=== PATIENT | female | born 1950 | race American Indian/Alaskan Native ===

== ENCOUNTER 2016-05-31 05:02 | Inpatient (IN) | payer MEDICARE, OTHER ==
[2016-05-31 06:31] LABS: Basophils % (Auto) 0.7 % (0.0-1.8); Eosinophils % (Auto) 2.7 % (0.0-4.3); Hematocrit 33.7 % (30.3-42.9); Hemoglobin 10.8 gm/dl (10.1-14.3); Mean Corpuscular HGB Conc 32 % (30-34); Mean Corpuscular Hemoglobin 29 pg (28-32); Mean Corpuscular Volume 91 fl (79-97); Platelet Count 390 K/mm3 (140-440); White Blood Count 12.6 K/mm3 (4.5-11.0)
[2016-05-31 06:33] LABS: Bacteria,Urine 4+ /HPF (Negative); Bilirubin,Urine NEG (Negative); Blood,Urine MOD (Negative); Ketones,Urine NEG (Negative); Leukocyte Esterase,Urine LG (Negative); Mucus,Urine FEW /HPF; Nitrite,Urine NEG (Negative); Urobilinogen,Urine < 2.0 mg/dL (<2.0)
[2016-05-31 06:34] LABS: WBC,Urine > 182.0 /HPF (0.0-6.0)
[2016-05-31] MEDS ORDERED: ROCEPHIN/NS 1 GM/50 ML 50 ML IV ONE (06:38)
[2016-05-31] MEDS ORDERED: NACL 0.9% 1000 ML 1,000 ML IV ONE (06:38)
[2016-05-31 06:51] LABS: B-Hydroxybutyrate 1.2 mg/dL (0.2-2.8); BUN/Creatinine Ratio 13.75; Calcium 8.9 mg/dL (8.4-10.2)
[2016-05-31 06:52] LABS: Chloride 89.8 mmol/L (98-107); Potassium 4.6 mmol/L (3.6-5.0)
[2016-05-31] MEDS ORDERED: BABY ASPIRIN PO ONE (07:06)
--- NOTE | 2016-05-31 07:06 | Emergency Department Report ---
HPI - General Chief Complaint: Hyperglycemia Time Seen by Provider: 05/31/16 06:18 - HPI HPI: The patient is a 66-year-old female with a history of diabetes, who presents for evaluation of syncope. The patient was with her . They state that at 3 AM this morning, 3 hours prior to my evaluation, the patient passed out while using the bathroom. The patient states that she experienced severe lightheadedness prior to passing out. She currently complains of constant severe tiredness/fatigue since passing out 3 hours ago. She admits to thirst and dryness of the mouth, and increased urinary frequency. The patient denies fever, head injury, headache, chest pain, dyspnea, hemoptysis, neck stiffness, vision or hearing changes, smell or taste changes, paresthesias, facial drooping , slurred speech, seizure-like activity, urine or bowel incontinence or retention, or other focal neurological deficit. ED Past Medical Hx - Past Medical History Previous Medical History?: Yes Hx Hypertension: Yes Hx Diabetes: Yes (IDDM) Additional medical history: HLD - Surgical History Past Surgical History?: No - Social History Smoking Status: Never Smoker Substance Use Type: None - Medications Home Medications: Home Medications Medication Instructions Recorded Confirmed Last Taken Type Atorvastatin Calcium [Lipitor] 20 mg PO QHS 05/31/16 05/31/16 Unknown History Insulin Aspart Prot/Aspart 9 units SQ QAM 05/31/16 05/31/16 Unknown History [Novolog Mix 70/30] Insulin Aspart Prot/Aspart 9 units SQ QPM 05/31/16 05/31/16 Unknown History [Novolog Mix 70/30] Insulin Glargine [Lantus] 29 units SQ QHS 05/31/16 05/31/16 Unknown History ED Review of Systems ROS: Stated complaint: HIGH BLOOD SUGAR Other details as noted in HPI Constitutional: denies: fever; reports syncope ENT: denies: throat or neck pain Respiratory: denies: cough, shortness of breath Cardiovascular: denies: chest pain Endocrine: denies unexplained weight loss or gain Gastrointestinal: denies: abdominal pain, nausea Genitourinary: reports urinary frequency denies: dysuria Musculoskeletal: denies: leg swelling Skin: denies: rash Neurological: denies: headache Hematological/Lymphatic: denies: easy bleeding or easy bruising Psych: denies sadness or hopelessness Physical Exam - Physical Exam Vital Signs: Vital Signs 05/31/16 05:48 Temperature 97.8 F Pulse Rate 89 Respiratory 20 Rate Blood Pressure 133/88 O2 Sat by Pulse 98 Oximetry Physical Exam: General: well-nourished, well-developed, no acute distress Head: Normocephalic, atraumatic Eyes: normal sclera ENT: Mucous membranes are pale and dry Neck: trachea midline, neck supple, No neck stiffness, no cervical adenopathy Respiratory: Breath sounds equal bilaterally, no wheezing, rales, or rhonchi Cardio: S1 and S2 present, no murmurs, rubs, gallops, capillary refill is delayed Abdomen: Normoactive bowel sounds, soft abdomen, suprapubic tenderness to palpation present, no rigidity, no guarding or rebound tenderness Chest WALL/Back: No tenderness to palpation of the chest wall, no CVA tenderness with percussion Musc: No pitting edema Skin: No rash Neuro: no facial drooping, normal speech Psych: Normal affect ED Course Vital Signs 05/31/16 05:48 Temperature 97.8 F Pulse Rate 89 Respiratory 20 Rate Blood Pressure 133/88 O2 Sat by Pulse 98 Oximetry ED Medical Decision Making - Lab Data Result diagrams: 05/31/16 05:58 05/31/16 05:58 - Medical Decision Making The patient was seen and examined by myself. The patient is placed on a lunchroom monitor and continuous pulse ox. On initial evaluation, the patient was found to be in no distress. Evaluation orders were placed. The patient is given 1 L normal saline fluid bolus for treatment of dehydration. Lab results revealed leukocytosis 12.6, elevated urine WBC 182, positive leukocyte esterase, consistent with UTI, elevated BUN/creatinine, 55 and 4 respectively, consistent with acute kidney injury, low pH 7.27, low bicarbonate of 20, with elevated anion gap of 23, consistent with metabolic acidosis, and elevated glucose of 702, although with normal ketone level, not consistent with DKA. The patient is given IV Rocephin for treatment of UTI, and 10 units of insulin for treatment of hyperglycemia. The on-call hospitalist service was contacted. They agreed to admit the patient for further treatment and close monitoring. The ED admit order was placed. The patient was admitted in guarded condition. Critical care attestation.: If time is entered above; I have spent that time in minutes in the direct care of this critically ill patient, excluding procedure time. ED Disposition Clinical Impression: Acute UTI (urinary tract infection), Acute hyperglycemia, CARLOS ALBERTO (acute kidney injury), Syncope and collapse, Metabolic acidosis, Dehydration Disposition: OP ADMITTED IP TO THIS HOSP Is pt being admited?: Yes Does the pt Need Aspirin: Yes Condition: Serious Instructions: Syncope (ED) Referrals: PRIMARY CARE, [Primary Care Provider] - 3-5 Days Time of Disposition: 06:52
--- NOTE | 2016-05-31 07:50 | History and Physical Report ---
History of Present Illness Chief complaint: I passed out History of present illness: 66 YO Female with DM, HTN, HLD, Obesity, Metabolic Syndrome presents to ED for evaluation. Pt states that she awoke at 3am, and went to the restroom. Pt states that she became lightheaded and dizzy while sitting on the toilet, and subsequently passed out while using the bathroom. Pt acknowledges polyuria, polydipsia, and polyphagia, and currently complains of constant severe fatigue since passing out 3 hours ago. The patient denies fever, head injury, headache, chest pain, dyspnea, hemoptysis, neck stiffness, vision or hearing changes, smell or taste changes, paresthesias, facial drooping, slurred speech, seizure- like activity, urine or bowel incontinence or retention, unintentional weight loss, night sweats, prolonged travel/immobility, individual/family history of DVT/PE, or recent ill contacts. Past History Past Medical History: diabetes, hypertension, hyperlipidemia Social history: , lives with family. denies: smoking, alcohol abuse, prescription drug abuse Family history: diabetes, hypertension Medications and Allergies Allergies Allergy/AdvReac Type Severity Reaction Status Date / Time No Known Allergies Allergy Unverified 05/31/16 05:48 Home Medications Medication Instructions Recorded Confirmed Last Taken Type Atorvastatin Calcium [Lipitor] 20 mg PO QHS 05/31/16 05/31/16 Unknown History Insulin Aspart Prot/Aspart 9 units SQ QAM 05/31/16 05/31/16 Unknown History [Novolog Mix 70/30] Insulin Aspart Prot/Aspart 9 units SQ QPM 05/31/16 05/31/16 Unknown History [Novolog Mix 70/30] Insulin Glargine [Lantus] 29 units SQ QHS 05/31/16 05/31/16 Unknown History Review of Systems All systems: negative Constitutional: fatigue, weakness Endocrine: polyphagia, polydipsia, polyuria Exam - Constitutional Vitals: Temp Pulse Resp BP Pulse Ox 97.8 F 89 20 133/88 98 05/31/16 05:48 05/31/16 05:48 05/31/16 05:48 05/31/16 05:48 05/31/16 05:48 General appearance: Present: no acute distress - EENT Eyes: Present: PERRL ENT: hearing intact, clear oral mucosa - Neck Neck: Present: supple, normal ROM - Respiratory Respiratory effort: normal Respiratory: bilateral: CTA - Cardiovascular Heart Sounds: Present: S1 & S2. Absent: rub, click - Extremities Extremities: pulses symmetrical, No edema Extremity abnormal: edema Peripheral Pulses: within normal limits - Abdominal General gastrointestinal: Present: soft, non-tender, non-distended, normal bowel sounds Female genitourinary: Present: normal - Integumentary Integumentary: Present: clear, warm, dry - Musculoskeletal Musculoskeletal: generalized weakness - Psychiatric Psychiatric: appropriate mood/affect, intact judgment & insight - Neurologic Neurologic: CNII-XII intact, moves all extremities Results - Labs CBC & Chem 7: 05/31/16 05:58 05/31/16 08:19 Labs: Abnormal lab results 05/31/16 05/31/16 05/31/16 Range/Units 05:58 05:58 05:58 WBC 12.6 H (4.5-11.0) K/mm3 [place] % (Auto) 8.8 H (0.0-7.3) % [place] # 1.1 H (0.0-0.8) K/mm3 VBG pH 7.273 L (7.320-7.420) Sodium 128 L (137-145) mmol/L Chloride 89.8 L (98-107) mmol/L Carbon Dioxide 20 L (22-30) mmol/L BUN 55 H (7-17) mg/dL Creatinine 4.0 H (0.7-1.2) mg/dL POC Glucose (70-105) Urine WBC (Auto) (0.0-6.0) /HPF U Epithel Cells (Auto) (0-13.0) /HPF 05/31/16 05/31/16 Range/Units 06:20 06:47 WBC (4.5-11.0) K/mm3 [place] % (Auto) (0.0-7.3) % [place] # (0.0-0.8) K/mm3 VBG pH (7.320-7.420) Sodium (137-145) mmol/L Chloride (98-107) mmol/L Carbon Dioxide (22-30) mmol/L BUN (7-17) mg/dL Creatinine (0.7-1.2) mg/dL POC Glucose 452 H (70-105) Urine WBC (Auto) > 182.0 H (0.0-6.0) /HPF U Epithel Cells (Auto) 77.0 H (0-13.0) /HPF Assessment and Plan - Patient Problems (1) Sepsis secondary to UTI Current Visit: Yes Status: Acute Plan to address problem: Sepsis protocol: IV abx, IVF, blood cultures, serial lactate levels (2) Acute hyperglycemia Current Visit: Yes Status: Acute Plan to address problem: ADA diet, Accu check, SSI, supportive care. (3) Metabolic acidosis Current Visit: Yes Status: Acute Plan to address problem: treat sepsis, IVF, supportive care. (4) Syncope and collapse Current Visit: Yes Status: Acute Plan to address problem: suspect vasovagal syncope, CT head, Ddimer (5) CARLOS ALBERTO (acute kidney injury) Current Visit: Yes Status: Acute Plan to address problem: IVF, supportive care, urine electrolytes, Renal ultrasound (6) DVT prophylaxis Current Visit: Yes Status: Acute
[2016-05-31] MEDS ORDERED: TYLENOL PO PRN (07:51)
[2016-05-31] MEDS ORDERED: D50W (25GM) IV PRN (09:00)
--- NOTE | 2016-05-31 09:09 | Admit Criteria Form ---
Admission Criteria Documentation: DIABETES Clinical Indications for Admission to Inpatient Care (Place 'X' for any and all applicable criteria): Admission is indicated by presence of ALL (if I & II) or ANY ONE (if III or IV) of the following (1)(2)(3)(4): [X ]I. Diabetes is uncontrolled as indicated by ANY ONE of the following: [ ]a) Diabetic ketoacidosis as indicated by ALL of the following (8): [ ]i) Hyperglycemia (eg, plasma glucose greater than 200 mg/ dL (11.1 mmol/L)) [ ]ii) Acidosis (eg, arterial pH less than 7.30, serum bicarbonate level less than 15 mEq/L (mmol/L)) [ ]iii) Moderate ketonuria or ketonemia [ ]b) Hyperglycemic hyperosmolar state as indicated by ALL of the following(9)(10): [ ]i) Neurologic dysfunction (eg, stupor, coma, hemiparesis , seizure)(13) [ ]ii) Plasma glucose greater than 600 mg/dL (33.3 mmol/L) [ ]iii) Serum osmolality greater than 320 mOsm/kg (mmol/kg) [X ]c) Severe signs or symptoms secondary to hyperglycemia indicated by ANY ONE of the following: [ ]i) Altered mental status(10) [ ]ii) Significant hypovolemia or dehydration [ ]iii) Intractable nausea or vomiting [ ]iv) Unexplained fever or severe infection [ X]v) Severe electrolyte abnormality (eg, hypokalemia, hyperkalemia, hypernatremia) [X ]II. Management at other levels of care (Also use Diabetes: Observation Care as appropriate) is not feasible because of ANY ONE of the following: [X ]a) Condition was not adequately corrected with treatment at other levels of care. [ ]b) Treatment at other levels of care is not appropriate because of condition severity (eg, hyperosmolar coma). [ ]III. Contraindications and/or Inappropriate clinical situations for Observational Care in patients with Diabetes, when ANY ONE of the following is required: [ ]a) Patient require specific diagnostic workup or therapeutic intervention 22 [ ]b) Patient with abnormal vital signs or altered mental status 23 [xX ]IV. General contraindications and/or Inappropriate clinical situations for Observational Care in patients with Diabetes, when ANY ONE of the following is required: [ X]a) Prediction of prolongation of LOS based on ANY ONE of the following may be considered as a contraindication for observational care 2, 3, 4, 5, 6, 7, 8, 9, 10, 11 X[ ]i) Age > 65 yrs. [ ]ii) Patient arriving by ambulance [ ]iii) Patient with high acuity [ ]iv) Patient requiring vital sign monitoring [ ]v) Patient on IV medication [ ]b) Systolic blood pressures 180mmHg 3,12 [ ]c) Patient with altered mental status including delirium and other alteration of consciousness, (3) [ ]d) Patient whose discharge disposition will be to a custodial home or rehabilitation home should not be managed in Emergency Department Observation Unit. CMS rule requires 3 days hospital stay before such placement.3,13 [ ]e) Patient with failure to thrive due to broad array of etiologies 3,16,17 [ ]f) Inability to ambulate 3,14 Extended stay beyond goal length of stay may be needed for(3)(20): [ ]a) Treatment of precipitating causes [ ]b) Development of hypoglycemia [ ]c) Complications of treatment [ ]d) Complications of decompensated diabetes (eg, acute gastric dilatation, persistent metabolic or neurologic derangement) [ ]e) Active Comorbidities [ ]f) Older patients( 65 years or older) The original [facility] [employer] content created by [employer] has been revised. The portions of the content which have been revised are identified through the use of italic text or in bold,and [facility] has neither reviewed nor approved the modified material. All other unmodified content is copyright [facility]. Please see references footnoted in the original [facility] [employer] edition 2016 Admission Criteria Met: Yes
[2016-05-31] MEDS ORDERED: [UNRECOGNIZED DRUG - OTHER] SQ SCH ×2 (10:00→18:00)
[2016-05-31] MEDS ORDERED: INSULIN ASPART PROTAMINE SQ SCH ×2 (10:00→18:00)
--- NOTE | 2016-05-31 10:12 | Ultrasound Report ---
ULTRASOUND RENAL INDICATION: Renal failure. COMPARISON: None similar at this institution. FINDINGS: Renal sonography demonstrates mild increased renal cortical echogenicity, more so apparent on the right. Grossly preserved contours. No hydronephrosis. Right kidney measures 10.9 x 4.8 x 5.3 cm with cortical thickness of 1.6 cm. Left kidney estimated at 11.4 x 5.9 x 6 cm with cortical thickness of 1.3 cm. Urinary bladder appears within normal limits. CONCLUSION: Underlying medical renal disease without acute sonographic abnormality, as described. Please correlate. Thank you for the opportunity to participate in this patient's care.
[2016-05-31] MEDS: NOVOLOG SUB-Q SCH ×2 (11:51→18:07)
[2016-05-31] MEDS: LEVAQUIN 750MG/150ML 150 ML IV SCH (11:51)
[2016-05-31] MEDS: NACL 0.9% 1000 ML 1,000 ML IV SCH (16:00)
[2016-05-31] MEDS ORDERED: PNEUMOVAX 23 IM ONE (21:00)
[2016-05-31] MEDS: LEVEMIR SUB-Q SCH (21:35)
[2016-05-31] MEDS ORDERED: INSULIN GLARGINE SQ SCH (22:00)
[2016-06-01] MEDS: NOVOLOG SUB-Q SCH ×4 (00:20→17:49)
[2016-06-01 07:58] LABS: Albumin 3.1 g/dL (3.9-5); Albumin/Globulin Ratio 0.7 %; BUN/Creatinine Ratio 13.54; Bilirubin,Total 0.3 mg/dL (0.1-1.2); Calcium 8.9 mg/dL (8.4-10.2); Chloride 104.3 mmol/L (98-107); Potassium 4.2 mmol/L (3.6-5.0); Total Protein 7.5 g/dL (6.3-8.2)
--- NOTE | 2016-06-01 10:49 | Cat Scan Report ---
CT HEAD WITHOUT CONTRAST INDICATION: Syncope. COMPARISON: None similar. FINDINGS: Noncontrast head CT demonstrates normal ventricles and sulci without acute or recent infarct, hemorrhage, mass effect or midline shift. Mild periventricular and few white matter hypodensities. No abnormal extra-axial fluid collections. Posterior fossa structures and basilar cisterns appear within normal limits. Atherosclerotic internal carotid artery calcifications. Clear imaged paranasal sinuses and mastoid air cells. Hyperostosis frontalis interna. Normal overlying scalp soft tissues. Few radiopaque dental material and missing teeth incidentally noted. CONCLUSION: No acute intracranial CT abnormality, as described. Thank you for the opportunity to participate in this patient's care.
[2016-06-01] MEDS: LEVAQUIN 750MG/150ML 150 ML IV SCH (11:20)
[2016-06-01] MEDS: NACL 0.9% 1000 ML 1,000 ML IV SCH (11:21)
--- NOTE | 2016-06-01 16:34 | Progress Note ---
Assessment and Plan Assessment and plan: Sepsis secondary to UTI * Continue Sepsis protocol: IV abx, IVF * Negative blood cultures, serial lactate levels trending down Diabetes mellitus type 2 on insulin * ADA diet, Accu check, SSI, supportive care. Metabolic acidosis * Likely due to underlying uncontrolled diabetes and declining renal function * treat sepsis, continue insulin, IVF, supportive care. Syncope and collapse * suspect vasovagal syncope, * CT head pending CARLOS ALBERTO (acute kidney injury) CKD * IVF, supportive care, urine electrolytes, Renal ultrasound * Creatinine 3.1 today * Repeat BMP tomorrow, if renal function declines we'll consult nephrology Hyperlipidemia * Continue statin History Interval history: Patient seen and examined. Medical records and medication list reviewed. No acute event overnight noted by the RN. Patient denies any chest pain or difficulty breathing. Patient is tolerating diet. Denies any lightheadedness, patient does have history of chronic kidney disease but does not follow up with nephrology's as an outpatient/ Discussed plan of care at bedside with patient. Hospitalist Physical - Physical exam Narrative exam: GENERAL: Obese -Hungarian female lying on bed appeared to be in no discomfort. HEENT: Normocephalic. Atraumatic. No conjunctival congestion or icterus. Patient has moist mucous membranes. NECK: Supple. Trachea midline. CHEST/LUNGS: Clear to auscultated bilaterally, breathing nonlabored. No wheezes crackles or rhonchi. HEART/CARDIOVASCULAR: Regular in rate and rhythm. S1 and S2 positive. ABDOMEN: Abdomen is soft, nontender. Patient has normal bowel sounds. SKIN: There is no rash. Warm and dry. NEURO: No focal motor deficit. Follows command. MUSCULOSKELETAL: No joint effusion or tenderness. EXTRIMITY: No edema, no cyanosis or clubbing. PSYCH: Cooperative. - Constitutional Vitals: Temp Pulse Resp BP Pulse Ox 98.6 F 102 H 16 152/88 97 06/01/16 07:25 06/01/16 07:25 06/01/16 07:25 06/01/16 07:25 06/01/16 08:19 General appearance: Present: no acute distress Results - Labs CBC & Chem 7: 05/31/16 05:58 06/02/16 05:19 Labs: Laboratory Last Values WBC 12.6 K/mm3 (4.5-11.0) H 05/31/16 05:58 RBC 3.70 M/mm3 (3.65-5.03) 05/31/16 05:58 Hgb 10.8 gm/dl (10.1-14.3) 05/31/16 05:58 Hct 33.7 % (30.3-42.9) 05/31/16 05:58 MCV 91 fl (79-97) 05/31/16 05:58 MCH 29 pg (28-32) 05/31/16 05:58 MCHC 32 % (30-34) 05/31/16 05:58 RDW 14.0 % (13.2-15.2) 05/31/16 05:58 Plt Count 390 K/mm3 (140-440) 05/31/16 05:58 Lymph % (Auto) 32.9 % (13.4-35.0) 05/31/16 05:58 [place] % (Auto) 8.8 % (0.0-7.3) H 05/31/16 05:58 Eos % (Auto) 2.7 % (0.0-4.3) 05/31/16 05:58 Baso % (Auto) 0.7 % (0.0-1.8) 05/31/16 05:58 Lymph # 4.2 K/mm3 (1.2-5.4) 05/31/16 05:58 [place] # 1.1 K/mm3 (0.0-0.8) H 05/31/16 05:58 Eos # 0.3 K/mm3 (0.0-0.4) 05/31/16 05:58 Baso # 0.1 K/mm3 (0.0-0.1) 05/31/16 05:58 Seg Neutrophils % 54.9 % (40.0-70.0) 05/31/16 05:58 Seg Neutrophils # 6.9 K/mm3 (1.8-7.7) 05/31/16 05:58 D-Dimer 394.43 ng/mlDDU (0-234) H 05/31/16 08:10 VBG pH 7.273 (7.320-7.420) L 05/31/16 05:58 Sodium 141 mmol/L (137-145) D 06/01/16 06:57 Potassium 4.2 mmol/L (3.6-5.0) 06/01/16 06:57 Chloride 104.3 mmol/L (98-107) 06/01/16 06:57 Carbon Dioxide 19 mmol/L (22-30) L 06/01/16 06:57 Anion Gap 22 mmol/L 06/01/16 06:57 BUN 42 mg/dL (7-17) H 06/01/16 06:57 Creatinine 3.1 mg/dL (0.7-1.2) H 06/01/16 06:57 Estimated GFR 18 ml/min 06/01/16 06:57 BUN/Creatinine Ratio 13.54 % 06/01/16 06:57 Glucose 90 mg/dL (65-100) 06/01/16 06:57 POC Glucose 130 (70-105) H 06/01/16 11:47 Lactic Acid 1.8 mmol/L (0.7-2.0) 05/31/16 14:20 Calcium 8.9 mg/dL (8.4-10.2) 06/01/16 06:57 Total Bilirubin 0.3 mg/dL (0.1-1.2) 06/01/16 06:57 AST 13 units/L (5-40) 06/01/16 06:57 ALT 8 units/L (7-56) 06/01/16 06:57 Alkaline Phosphatase 182 units/L (35-129) H 06/01/16 06:57 Total Protein 7.5 g/dL (6.3-8.2) 06/01/16 06:57 Albumin 3.1 g/dL (3.9-5) L 06/01/16 06:57 Albumin/Globulin Ratio 0.7 % 06/01/16 06:57 Urine Color Yellow (Yellow) 05/31/16 06:20 Urine Turbidity Turbid (Clear) 05/31/16 06:20 Urine pH 5.0 (5.0-7.0) 05/31/16 06:20 Ur Specific [place] 1.017 (1.003-1.030) 05/31/16 06:20 Urine Protein 100 mg/dl mg/dL (Negative) 05/31/16 06:20 Urine Glucose (UA) >=500 mg/dL (Negative) 05/31/16 06:20 Urine Ketones Neg mg/dL (Negative) 05/31/16 06:20 Urine Blood Mod (Negative) 05/31/16 06:20 Urine Nitrite Neg (Negative) 05/31/16 06:20 Urine Bilirubin Neg (Negative) 05/31/16 06:20 Urine Urobilinogen < 2.0 mg/dL (<2.0) 05/31/16 06:20 Ur Leukocyte Esterase Lg (Negative) 05/31/16 06:20 Urine WBC (Auto) > 182.0 /HPF (0.0-6.0) H 05/31/16 06:20 Urine RBC (Auto) 77.0 /HPF (0.0-6.0) 05/31/16 06:20 U Epithel Cells (Auto) 77.0 /HPF (0-13.0) H 05/31/16 06:20 Urine Bacteria (Auto) 4+ /HPF (Negative) 05/31/16 06:20 Urine WBC Clumps 3+ /HPF 05/31/16 06:20 Urine Mucus Few /HPF 05/31/16 06:20 Urine Creatinine 83.6 mg/dL (0.1-20.0) H 05/31/16 07:56 Protein/Creatinin Ratio 3.83 05/31/16 07:56 Urine Sodium 43 mEq/L 05/31/16 07:56 Urine Total Protein 320 mg/dL (5-11.8) H 05/31/16 07:56 Ketones 1.2 mg/dL (0.2-2.8) 05/31/16 05:58
[2016-06-01] MEDS: LOPRESSOR PO SCH (22:04)
[2016-06-01] MEDS: LEVEMIR SUB-Q SCH (22:50)
[2016-06-02] MEDS: NOVOLOG SUB-Q SCH ×4 (00:28→17:08)
[2016-06-02 06:26] LABS: BUN/Creatinine Ratio 13.14; Calcium 8.3 mg/dL (8.4-10.2); Chloride 106.5 mmol/L (98-107); Potassium 4.9 mmol/L (3.6-5.0)
[2016-06-02] MEDS: NACL 0.9% 1000 ML 1,000 ML IV SCH ×2 (08:17→22:13)
[2016-06-02] MEDS: LOPRESSOR PO SCH ×2 (09:42→22:10)
[2016-06-02] MEDS: LEVAQUIN 750MG/150ML 150 ML IV SCH (09:42)
[2016-06-02] MEDS: HEPARIN SUB-Q SCH ×3 (09:43→22:11)
--- NOTE | 2016-06-02 15:16 | Progress Note ---
Assessment and Plan Assessment and plan: Sepsis secondary to UTI * Continue Sepsis protocol: IV abx, IVF * Negative blood cultures Diabetes mellitus type 2 on insulin * ADA diet, Accu check, SSI, supportive care. Metabolic acidosis * Likely due to underlying uncontrolled diabetes and declining renal function * treat sepsis, continue insulin, IVF, supportive care. Syncope and collapse * suspect vasovagal syncope likely due to dehydration, * CT head was normal CARLOS ALBERTO (acute kidney injury) on CKD * IVF, supportive care, urine electrolytes, * Renal ultrasound showed medical renal disease * Creatinine 3.5 today * consult nephrology Hyperlipidemia * Continue statin History Interval history: Patient seen and examined. Medical records and medication list reviewed. No acute event overnight noted by the RN. Patient denies any chest pain or difficulty breathing. Patient is tolerating diet. Denies any lightheadedness, patient does have history of chronic kidney disease but does not follow up with nephrology's as an outpatient/ Her potassium level 3.5 today, nephrology has been consulted Discussed plan of care at bedside with patient. Hospitalist Physical - Physical exam Narrative exam: GENERAL: Obese -[place] female lying on bed appeared to be in no discomfort. HEENT: Normocephalic. Atraumatic. No conjunctival congestion or icterus. Patient has moist mucous membranes. NECK: Supple. Trachea midline. CHEST/LUNGS: Clear to auscultated bilaterally, breathing nonlabored. No wheezes crackles or rhonchi. HEART/CARDIOVASCULAR: Regular in rate and rhythm. S1 and S2 positive. ABDOMEN: Abdomen is soft, nontender. Patient has normal bowel sounds. SKIN: There is no rash. Warm and dry. NEURO: No focal motor deficit. Follows command. MUSCULOSKELETAL: No joint effusion or tenderness. EXTRIMITY: No edema, no cyanosis or clubbing. PSYCH: Cooperative. - Constitutional Vitals: Temp Pulse Resp BP Pulse Ox 97.7 F 81 16 174/81 98 06/02/16 15:08 06/02/16 15:08 06/02/16 15:08 06/02/16 15:08 06/02/16 15:08 General appearance: Present: no acute distress Results - Labs CBC & Chem 7: 05/31/16 05:58 06/03/16 06:17 Labs: Laboratory Last Values WBC 12.6 K/mm3 (4.5-11.0) H 05/31/16 05:58 RBC 3.70 M/mm3 (3.65-5.03) 05/31/16 05:58 Hgb 10.8 gm/dl (10.1-14.3) 05/31/16 05:58 Hct 33.7 % (30.3-42.9) 05/31/16 05:58 MCV 91 fl (79-97) 05/31/16 05:58 MCH 29 pg (28-32) 05/31/16 05:58 MCHC 32 % (30-34) 05/31/16 05:58 RDW 14.0 % (13.2-15.2) 05/31/16 05:58 Plt Count 390 K/mm3 (140-440) 05/31/16 05:58 Lymph % (Auto) 32.9 % (13.4-35.0) 05/31/16 05:58 [place] % (Auto) 8.8 % (0.0-7.3) H 05/31/16 05:58 Eos % (Auto) 2.7 % (0.0-4.3) 05/31/16 05:58 Baso % (Auto) 0.7 % (0.0-1.8) 05/31/16 05:58 Lymph # 4.2 K/mm3 (1.2-5.4) 05/31/16 05:58 Stewart # 1.1 K/mm3 (0.0-0.8) H 05/31/16 05:58 Eos # 0.3 K/mm3 (0.0-0.4) 05/31/16 05:58 Baso # 0.1 K/mm3 (0.0-0.1) 05/31/16 05:58 Seg Neutrophils % 54.9 % (40.0-70.0) 05/31/16 05:58 Seg Neutrophils # 6.9 K/mm3 (1.8-7.7) 05/31/16 05:58 D-Dimer 394.43 ng/mlDDU (0-234) H 05/31/16 08:10 VBG pH 7.273 (7.320-7.420) L 05/31/16 05:58 Sodium 139 mmol/L (137-145) 06/02/16 05:19 Potassium 4.9 mmol/L (3.6-5.0) 06/02/16 05:19 Chloride 106.5 mmol/L (98-107) 06/02/16 05:19 Carbon Dioxide 19 mmol/L (22-30) L 06/02/16 05:19 Anion Gap 18 mmol/L 06/02/16 05:19 BUN 46 mg/dL (7-17) H 06/02/16 05:19 Creatinine 3.5 mg/dL (0.7-1.2) H 06/02/16 05:19 Estimated GFR 16 ml/min 06/02/16 05:19 BUN/Creatinine Ratio 13.14 % 06/02/16 05:19 Glucose 189 mg/dL (65-100) H 06/02/16 05:19 POC Glucose 216 (70-105) H 06/02/16 06:10 Lactic Acid 1.8 mmol/L (0.7-2.0) 05/31/16 14:20 Calcium 8.3 mg/dL (8.4-10.2) L 06/02/16 05:19 Total Bilirubin 0.3 mg/dL (0.1-1.2) 06/01/16 06:57 AST 13 units/L (5-40) 06/01/16 06:57 ALT 8 units/L (7-56) 06/01/16 06:57 Alkaline Phosphatase 182 units/L (35-129) H 06/01/16 06:57 Total Protein 7.5 g/dL (6.3-8.2) 06/01/16 06:57 Albumin 3.1 g/dL (3.9-5) L 06/01/16 06:57 Albumin/Globulin Ratio 0.7 % 06/01/16 06:57 Urine Color Yellow (Yellow) 05/31/16 06:20 Urine Turbidity Turbid (Clear) 05/31/16 06:20 Urine pH 5.0 (5.0-7.0) 05/31/16 06:20 Ur Specific [place] 1.017 (1.003-1.030) 05/31/16 06:20 Urine Protein 100 mg/dl mg/dL (Negative) 05/31/16 06:20 Urine Glucose (UA) >=500 mg/dL (Negative) 05/31/16 06:20 Urine Ketones Neg mg/dL (Negative) 05/31/16 06:20 Urine Blood Mod (Negative) 05/31/16 06:20 Urine Nitrite Neg (Negative) 05/31/16 06:20 Urine Bilirubin Neg (Negative) 05/31/16 06:20 Urine Urobilinogen < 2.0 mg/dL (<2.0) 05/31/16 06:20 Ur Leukocyte Esterase Lg (Negative) 05/31/16 06:20 Urine WBC (Auto) > 182.0 /HPF (0.0-6.0) H 05/31/16 06:20 Urine RBC (Auto) 77.0 /HPF (0.0-6.0) 05/31/16 06:20 U Epithel Cells (Auto) 77.0 /HPF (0-13.0) H 05/31/16 06:20 Urine Bacteria (Auto) 4+ /HPF (Negative) 05/31/16 06:20 Urine WBC Clumps 3+ /HPF 05/31/16 06:20 Urine Mucus Few /HPF 05/31/16 06:20 Urine Creatinine 83.6 mg/dL (0.1-20.0) H 05/31/16 07:56 Protein/Creatinin Ratio 3.83 05/31/16 07:56 Urine Sodium 43 mEq/L 05/31/16 07:56 Urine Total Protein 320 mg/dL (5-11.8) H 05/31/16 07:56 Ketones 1.2 mg/dL (0.2-2.8) 05/31/16 05:58
[2016-06-02] MEDS ORDERED: AMBIEN PO PRN (20:40)
--- NOTE | 2016-06-02 22:02 | Consultation ---
History of Present Illness - Reason for Consult Consult date: 06/02/16 acute renal failure, chronic renal failure, metabolic acidosis - History of Present Illness Patient is a 66 YO AAF with history significant for Obesity, DM type 2, HTN, HLD , Metabolic Syndrome and CKD stage 4 presents to ED for evaluation of syncopal episode. Pt states that she became lightheaded and dizzy while sitting on the toilet, and subsequently passed out. She has not been feeling well for the past 2 weeks. Symptoms include fatigue, poor appetite, decreased PO intake and feeling unwell. Patient is known to have CKD and her most recent creatinine was 3 in december 2015. Her admission creatinine was 4 and has improved to 3.5 today. The patient denies fever, headache, chest pain, dyspnea, hemoptysis, diarrhea, abd pain, jaundice, dysuria, hematuria, urine or bowel incontinence or retention, leg swelling or NSAID intake. She is diagnosed with UTI. Past History Past Medical History: diabetes, hypertension, hyperlipidemia Social history: , lives with family. denies: smoking, alcohol abuse, prescription drug abuse Family history: diabetes, hypertension Medications and Allergies Allergies Allergy/AdvReac Type Severity Reaction Status Date / Time No Known Allergies Allergy Unverified 05/31/16 05:48 Home Medications Medication Instructions Recorded Confirmed Last Taken Type Atorvastatin Calcium [Lipitor] 20 mg PO QHS 05/31/16 05/31/16 Unknown History Insulin Aspart Prot/Aspart 9 units SQ QAM 05/31/16 05/31/16 Unknown History [Novolog Mix 70/30] Insulin Aspart Prot/Aspart 9 units SQ QPM 05/31/16 05/31/16 Unknown History [Novolog Mix 70/30] Insulin Glargine [Lantus] 29 units SQ QHS 05/31/16 05/31/16 Unknown History Active Meds: Active Medications Acetaminophen (Tylenol) 650 mg PO Q4H PRN PRN Reason: Pain MILD(1-3)/Fever >100.5/[place] Atorvastatin Calcium (Lipitor) 20 mg PO QHS [facility] Last Admin: 06/01/16 22:05 Dose: 20 mg Dextrose (D50w (25gm)) 50 ml IV PRN PRN PRN Reason: Hypoglycemia Heparin Sodium (Porcine) (Heparin) 5,000 unit SUB-Q Q8HR [facility] Last Admin: 01/12/17 13:21 Dose: 5,000 unit Sodium Chloride (Nacl 0.9% 1000 Ml) 1,000 mls @ 75 mls/hr IV DIRECT [facility] Last Admin: 06/02/16 08:17 Dose: 75 mls/hr Levofloxacin/Dextrose (Levaquin 750mg/150ml) 150 mls @ 100 mls/hr IV Q48HR [facility] PRN Reason: Protocol Insulin Aspart (Novolog) 0 units SUB-Q Q6HR [facility] PRN Reason: Protocol Last Admin: 06/02/16 17:08 Dose: Not Given Insulin Detemir (Levemir) 29 units SUB-Q QHS [facility] Last Admin: 06/01/16 22:50 Dose: 29 units Insulin Human Isoph/Insulin Regular (Novolin 70/30) 9 unit SUB-Q QAMDIAB [facility] Last Admin: 06/02/16 08:26 Dose: 9 unit Insulin Human Isoph/Insulin Regular (Novolin 70/30) 9 unit SUB-Q QPMDIAB [facility] Last Admin: 06/02/16 17:08 Dose: Not Given Metoprolol Tartrate (Lopressor) 50 mg PO BID [facility] Last Admin: 06/02/16 09:42 Dose: 50 mg Zolpidem Tartrate (Ambien) 5 mg PO QHS PRN PRN Reason: Sleep Review of Systems Constitutional: anorexia, fatigue, weakness, malaise, poor appetite, no fever, no chills, no night sweats, no chronic pain Ears, nose, mouth and throat: no sinus pressure, no sinus pain, no epistaxis Breasts: deferred Cardiovascular: syncope, lightheadedness, high blood pressure, no chest pain, no orthopnea, no edema, no shortness of breath, no leg edema Respiratory: no cough, no shortness of breath, no dyspnea on exertion, no wheezing Gastrointestinal: no abdominal pain, no nausea, no vomiting, no diarrhea, no hematemesis, no melena, no jaundice Genitourinary Female: no dysuria, no hematuria Musculoskeletal: no neck stiffness, no redness of joints Integumentary: no rash, no jaundice Neurological: syncope, no paralysis, no parathesias, no numbness, no seizures Endocrine: polydipsia, fatigue Hematologic/Lymphatic: no easy bleeding Allergic/Immunologic: no wheezing Exam - Vital Signs Vital signs: Vital Signs Temp Pulse Resp BP Pulse Ox 97.8 F 89 20 133/88 98 05/31/16 05:48 05/31/16 05:48 05/31/16 05:48 05/31/16 05:48 05/31/16 05:48 - General Appearance General appearance: well-developed, well-nourished, obese, other (no distress) EENT: PERRL, mucous membranes dry, hearing intact, vision intact Neck: Present: neck supple, trachea midline Respiratory: Clear to Ascultation Heart: regular, no murmurs Gastrointestinal: Present: normoactive bowel sounds. Absent: tenderness, distended, guarding Integumentary: warm and dry Neurologic: no focal deficit, no asterixis, alert and oriented x3, CN 3-12 intact Musculoskeletal: Present: other (no edema, right 2nd and 3rd toes are amputated) Psychiatric: mood/affect appropriate, cooperative Results - Lab Results 05/31/16 05:58 06/02/16 05:19 Most recent lab results Calcium 8.3 mg/dL (8.4-10.2) L 06/02/16 05:19 Urine Creatinine 83.6 mg/dL (0.1-20.0) H 05/31/16 07:56 Urine Sodium 43 mEq/L 05/31/16 07:56 Urine Total Protein 320 mg/dL (5-11.8) H 05/31/16 07:56 - Image Kidney/bladder ultrasound: pending Assessment and Plan - Patient Problems (1) CARLOS ALBERTO (acute kidney injury) Current Visit: Yes Status: Acute Plan to address problem: Acute Kidney Injury superimposed on CKD stage 4 in the setting of volume depletion. Creatinine is overall better. Continue IV fluids. Renal US and Urine studies. (2) Volume depletion Current Visit: Yes Status: Acute Plan to address problem: Continue IV fluids. (3) Metabolic acidosis Current Visit: Yes Status: Acute Plan to address problem: Monitor and if needed will add Sodium bicarbonate. (4) Syncope and collapse Current Visit: Yes Status: Acute (5) Acute UTI (urinary tract infection) Current Visit: Yes Status: Acute (6) Acute hyperglycemia Current Visit: Yes Status: Acute Plan to address problem: Blood sugar is better. (7) Proteinuria due to type 2 diabetes mellitus Current Visit: Yes Status: Acute Plan to address problem: Likely Diabetic Nephropathy.
[2016-06-02] MEDS: LEVEMIR SUB-Q SCH (22:12)
[2016-06-03] MEDS: NOVOLOG SUB-Q SCH ×4 (00:18→17:08)
[2016-06-03] MEDS: HEPARIN SUB-Q SCH ×2 (06:50→13:34)
[2016-06-03 07:15] LABS: BUN/Creatinine Ratio 12.5; Chloride 108.3 mmol/L (98-107); Magnesium 1.7 mg/dL (1.7-2.3); Potassium 4.5 mmol/L (3.6-5.0)
--- NOTE | 2016-06-03 08:40 | Progress Note ---
Assessment and Plan - Patient Problems (1) CARLOS ALBERTO (acute kidney injury) Status: Acute Plan to address problem: Acute Kidney Injury superimposed on CKD stage 4 in the setting of volume depletion. Creatinine is much better. Encouraged to increase PO fluid intake. (2) Volume depletion Status: Acute Plan to address problem: Improving. (3) Metabolic acidosis Status: Acute Plan to address problem: Stable. (4) Syncope and collapse Status: Acute (5) Proteinuria due to type 2 diabetes mellitus Status: Acute Plan to address problem: Likely Diabetic Nephropathy. (6) Acute UTI (urinary tract infection) Status: Acute (7) Acute hyperglycemia Status: Acute Subjective Date of service: 06/03/16 Interval history: Patient is feeling better. Objective - Vital Signs Vital signs: Vital Signs - 12hr 06/02/16 06/02/16 06/03/16 22:00 22:10 00:00 Temperature 97.8 F Pulse Rate 86 Pulse Rate [ 89 78 Left Radial] Respiratory 18 20 Rate Blood Pressure 190/84 Blood Pressure 169/86 [Left Arm] O2 Sat by Pulse 97 Oximetry 06/03/16 04:00 Temperature 98.3 F Pulse Rate Pulse Rate [ 85 Left Radial] Respiratory 20 Rate Blood Pressure Blood Pressure 179/95 [Left Arm] O2 Sat by Pulse 98 Oximetry - General Appearance General appearance: well-developed, well-nourished, obese, other (no distress) EENT: PERRL, mucous membranes moist, hearing intact, vision intact Neck: no JVD, supple Cardiology: regular, S1S2, no murmurs Gastrointestinal: normoactive bowel sounds, no tenderness, no distended, no guarding Integumentary: no rash, warm and dry Neurologic: no focal deficit, no asterixis, alert and oriented x3, CN 3-12 intact Musculoskeletal: other (right 2nd and 3rd toe amputated) Psychiatric: mood/affect appropriate, cooperative - Lab 05/31/16 05:58 06/03/16 06:17 Most recent lab results Calcium 9.0 mg/dL (8.4-10.2) 06/03/16 06:17 Phosphorus 3.0 mg/dL (2.5-4.5) 06/03/16 06:17 Magnesium 1.7 mg/dL (1.7-2.3) 06/03/16 06:17 Urine Creatinine 83.6 mg/dL (0.1-20.0) H 05/31/16 07:56 Urine Sodium 43 mEq/L 05/31/16 07:56 Urine Total Protein 320 mg/dL (5-11.8) H 05/31/16 07:56
[2016-06-03] MEDS: LOPRESSOR PO SCH (09:01)
--- NOTE | 2016-06-03 12:58 | Discharge Summary ---
Providers - Providers Date of Admission: 05/31/16 07:51 Date of discharge: 06/03/16 Attending physician: SHAUN CORREA 05/31/16 19:44 Consult to Wound/ET Nurse [CONS] Routine Reason For Exam: wound eval 06/02/16 15:15 Consult to Physician [CONS] Routine Consulting Provider: AKUA SINGER Reason For Exam: carlos alberto on [address] consult to:: convenience store manager nephrology/DR. SINGER Notified:: [employer] [employer] Phone number called:: [phone] Was contact made?: Yes If yes, spoke with:: DARIANA Time called:: 18:13 Comment:: HILARIO NOTIFIED Primary care physician: JOURNALIST Hospitalization Condition: Serious Hospital course: Discharge Diagnosis: Sepsis secondary to UTI * Continue antibiotics for total 7 days * Negative blood cultures Hyperglycemic episode: * due to uncontrolled DM, resolved with hydration Diabetes mellitus type 2 on insulin * ADA diet, cont long acting insulin, dose adjusted and increased. Metabolic acidosis * Likely due to underlying uncontrolled diabetes and declining renal function * improved Syncope and collapse * suspect vasovagal syncope likely due to dehydration from hyperglycemia, * CT head was normal CARLOS ALBERTO (acute kidney injury) on CKD * Renal ultrasound showed medical renal disease * Creatinine 2.8 today * out patient nephrology follow up Hypertension * Was normotensive following admission * adjusted BP meds before discharge Hyperlipidemia * Continue statin Disposition: DISCHARGED TO HOME OR SELFCARE Time spent for discharge: 32 minutes Core Measure Documentation - Palliative Care Palliative Care/ Comfort Measures: Not Applicable - Core Measures Any of the following diagnoses?: none Exam - Physical Exam Narrative exam: GENERAL: Obese -[place] female lying on bed appeared to be in no discomfort. HEENT: Normocephalic. Atraumatic. No conjunctival congestion or icterus. Patient has moist mucous membranes. NECK: Supple. Trachea midline. CHEST/LUNGS: Clear to auscultated bilaterally, breathing nonlabored. No wheezes crackles or rhonchi. HEART/CARDIOVASCULAR: Regular in rate and rhythm. S1 and S2 positive. ABDOMEN: Abdomen is soft, nontender. Patient has normal bowel sounds. SKIN: There is no rash. Warm and dry. NEURO: No focal motor deficit. Follows command. MUSCULOSKELETAL: No joint effusion or tenderness. EXTRIMITY: No edema, no cyanosis or clubbing. PSYCH: Cooperative. - Constitutional Vitals: Temp Pulse Resp BP Pulse Ox 98.3 F 84 18 176/86 98 06/03/16 08:00 06/03/16 08:00 06/03/16 08:00 06/03/16 09:01 06/03/16 08:00 Plan Activity: no restrictions Weight Bearing Status: Non-Weight Bearing Diet: diabetic, renal Follow up with: PRIMARY CARE, [Primary Care Provider] - 3-5 Days Prescriptions: Levofloxacin [Levaquin TAB] 250 mg PO QDAY #4 tablet Metoprolol [Lopressor TAB] 50 mg PO BID #60 tablet amLODIPine [Norvasc] 10 mg PO QDAY #30 tablet Pending Studies Follow-up with Dr. Queen by Monday.
[2016-06-03] MEDS ORDERED: NORVASC PO SCH (13:00)
[2016-06-03] MEDS: APRESOLINE IV ONE ×2 (13:41→14:16)
[2016-06-03] MEDS ORDERED: APRESOLINE IM ONE (14:08)
[2016-06-03] MEDS ORDERED: CATAPRES PO ONE (14:10)
[2016-06-03 17:01] VITALS: BP 170/84
[2016-06-03] MEDS ORDERED: LEVEMIR SUB-Q SCH (22:00)
[2016-06-04] MEDS ORDERED: LEVAQUIN 750MG/150ML 150 ML IV SCH (10:00)
--- NOTE | 2016-06-07 10:31 | Query-Kidney Disease ---
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 Questions asked do not imply a particular answer is desired or expected. We greatly appreciate your clarification on this issue. Clinical Documentation States: 66 y/o f admitted 05/31/16 with UTI and acute on chronic CARLOS ALBERTO. Patient later diagnosed with sepsis 2/2 UTI. Below are the clinical indicators for acute renal failure. Clinical Findings Show: From 05/31->06/01/16 Creatinine 4.0-> 3.1 BUN 55-> 42 GFR 14-> 18 Please Clarify if you mean: Acute Renal Failure with or due to: [ ] Tubular Necrosis [ ] Cortical Necrosis [ ] Shock Kidney [ x] Vasomotor Nephropathy [ ] Lower Tubular Nephrosis [ ] Renal Tubular Stasis [ ] Tubular Nephrosis [ ] Medullary Necrosis [ ] Acute Renal Failure (unspecified) [ ] Other: [ ] Comment/Explanation: Chronic Kidney Disease (Please [place] applicable stage) 3 Stages Description GFR [ ] CKD Stage 1 90 mL/min or more [ ] CKD Stage 2 Mild decrease in Kidney function 60 to 89 mL/min [ ] CKD Stage 3 Moderate decrease in kidney function 30-59 [ x] CKD Stage 4 Severe decrease in kidney function 15-29 [ ] CKD Stage 5 Kidney failure; requiring dialysis or transplantation <15 [ ] ESRD Patient requiring dialysis for > 3 months or kidney transplant irrespective of level of GFR; Applicable for 1 year after kidney transplant [ ] Other: [ ] Comment/Explanation: Present on Admission: [ x] Yes (Y) [ ] Clinically undeterminable (W) [ ] No (N) Please also document response in your Progress Notes and/or Discharge Summary and indicate if the condition was present on admission MTDD
== END 2016-06-03 18:03 | disposition home or self-care (01) | DRG 871 ==
LOC: ED 05:02 → 3A 07:51
PROVIDERS: ADMIT Internal Medicine; ATTEND Internal Medicine
PROC: 4A033R1 Measurement of Arterial Saturation, Peripheral, Percutaneous Approach (ICD-10-PCS; principal; 2016-05-31)
DX: A41.9 Sepsis, unspecified organism (principal); N17.0 Acute kidney failure with tubular necrosis; N39.0 Urinary tract infection, site not specified; N18.4 Chronic kidney disease, stage 4 (severe); E11.65 Type 2 diabetes mellitus with hyperglycemia; E78.5 Hyperlipidemia, unspecified; E11.22 Type 2 diabetes mellitus with diabetic chronic kidney disease; I12.9 Hypertensive chronic kidney disease with stage 1 through stage 4 chronic kidney disease, or unspecified chronic kidney disease; E66.9 Obesity, unspecified; Z79.4 Long term (current) use of insulin; Z68.35 Body mass index [BMI] 35.0-35.9, adult
CPT/HCPCS: 36415; 70450; 76770; 80048; 80053; 81001; 82010; 82140; 82550; 82570; 82805; 82947; 82962; 83735; 83970; 84100; 84156; 84300; 85025; 85379; 86038; 90471; 90732; 93005; 93010; 94760; 96361; 96365; 96367; 96375; 96376; A9270-GY; G0009; J0360; J0696; J1644; J1815; J1818; J1956; J7030